=== PATIENT | male | born 1965 | race Caucasian/White ===

== ENCOUNTER 2017-07-08 18:16 | Emergency (ER) | payer SELFPAY | END 2017-07-08 20:35 | disposition home or self-care (01) | LOC: D.ER 18:16 | DX: L02.413 Cutaneous abscess of right upper limb (principal); E11.9 Type 2 diabetes mellitus without complications; I10 Essential (primary) hypertension ==

== ENCOUNTER 2019-01-13 14:56 | Emergency (ER) | payer MEDICAID ==
[~2019-01-13] VITALS: Ht 167.6 cm; Wt 88.2 kg
[2019-01-13 15:21] VITALS: Ht 167.6 cm; Wt 88.2 kg
[2019-01-13] MEDS ORDERED: NEURONTIN 300300 MG PO (15:23)
[2019-01-13] MEDS ORDERED: MOBIC7.5 MG PO (15:23)
[2019-01-13] MEDS ORDERED: LISINOPRIL40 MG PO (15:24)
[2019-01-13] MEDS ORDERED: ROBAXIN500 MG PO (15:24)
[2019-01-13] MEDS ORDERED: GLUCOPHAGE500 MG PO (15:25)
[2019-01-13] MEDS ORDERED: OXYCONTIN10 MG PO (15:25)
[2019-01-13] MEDS ORDERED: GLUCOPHAGE1000 MG PO (15:27)
[2019-01-13 17:22] LABS: BASOPHILS 0.1 % (0-2); EOSINOPHILS 2.3 % (0-7); HEMATOCRIT 36.3 % (42.0-54.0); HEMOGLOBIN 13.1 g/dL (13.5-17.5); IMMATURE GRANULOCYTES 0.3 % (0-5); LYMPHOCYTES 9.3 % (15-50); MCH 30.5 pg (26.0-34.0); MCHC 36.1 g/dL (31.0-37.0); MCV 84.4 fL (80.0-100.0); MEAN PLATELET VOLUME 11.1 fL (7.4-10.4); MONOCYTES 3.4 % (2-11); NEUTROPHILS 84.6 % (40-80); PLATELET COUNT 104 10x3/uL (130-400); RDW 12.7 % (11.5-14.5); WBC 10.7 10x3/uL (4.8-10.8)
[2019-01-13 17:43] LABS: ALBUMIN 4.3 g/dL (3.4-5.0); ANION GAP 14.2 mmol/L (8-16); BILIRUBIN - TOTAL 0.64 mg/dL (0.2-1.3); CALCIUM 8.5 mg/dL (8.5-10.1); CARBON DIOXIDE 23.6 mmol/L (21.0-32.0); CREATININE - SERUM 2.3 mg/dL (0.6-1.3); POTASSIUM - SERUM 4.8 mmol/L (3.5-5.1); PROTEIN - SERUM 7.5 g/dL (6.4-8.2)
[2019-01-13] MEDS ORDERED: PREDNISONE10 MG PO (19:04)
[2019-01-13] MEDS ORDERED: BACTRIM 400-801 TAB PO (19:04)
[2019-01-13] MEDS ORDERED: ULTRAM50 MG PO (19:05)
[2019-01-13 19:45] VITALS: BP 122/78
== END 2019-01-13 19:45 | disposition home or self-care (01) ==
LOC: D.ER 14:56
PROVIDERS: Family Medicine
DX: M25.561 Pain in right knee (principal); S80.861A Insect bite (nonvenomous), right lower leg, initial encounter; W57.XXXA Bitten or stung by nonvenomous insect and other nonvenomous arthropods, initial encounter; Y93.89 Activity, other specified; Y92.019 Unspecified place in single-family (private) house as the place of occurrence of the external cause